=== PATIENT | female | born 1975 | race Caucasian/White ===

== ENCOUNTER 2020-07-16 21:38 | Emergency (ER) | payer OTHER ==
[~2020-07-16] VITALS: Ht 170.2 cm; Wt 90.7 kg
[2020-07-16] MEDS ORDERED: ZOCOR20 MG (21:59)
[2020-07-16] MEDS ORDERED: NORVASC10 MG (21:59)
[2020-07-16] MEDS ORDERED: COZAAR25 MG (22:00)
[2020-07-16] MEDS ORDERED: HUMIRA20 MG/0.4 (22:01)
== END 2020-07-17 04:03 | disposition home or self-care (01) ==
LOC: ER 21:38
DX: K29.60 Other gastritis without bleeding (principal); G43.809 Other migraine, not intractable, without status migrainosus; Z20.822 Contact with and (suspected) exposure to COVID-19

== ENCOUNTER → 2020-11-05 | Emergency (ER) | payer OTHER ==
[~2020-11-05] VITALS: Ht 162.6 cm; Wt 86.2 kg
[~2020-11-05] MED LIST: CLONAZEPAM2 MG; COZAAR25 MG; HUMIRA20 MG/0.4; NORVASC10 MG; VISTARIL50 MG; WELLBUTRIN XL150 M1; WELLBUTRIN XL300 MG; ZOCOR20 MG
== END | disposition home or self-care (01) ==
LOC: ER 18:35
DX: K29.70 Gastritis, unspecified, without bleeding (principal); R45.89 Other symptoms and signs involving emotional state; Z11.52 Encounter for screening for COVID-19